=== PATIENT | female | born 1960 | race African-American/Black ===

== ENCOUNTER 2024-08-21 11:28 | Emergency (ER) | payer SELFPAY ==
[~2024-08-21] VITALS: Ht 167.6 cm; Wt 86.0 kg
[2024-08-21 11:35] VITALS: BP 170/74; RESP 18; TEMP 98.1; O2SAT 100
[2024-08-21 11:36] VITALS: PULSE 101; O2SAT 98
[2024-08-21] MEDS ORDERED: MUPI15CR11 TP (15:06)
[2024-08-21] MEDS ORDERED: DOXY100T28 MT (15:06)
== END 2024-08-21 15:14 | disposition home or self-care (01) ==
LOC: ER 11:28
DX: I87.2 Venous insufficiency (chronic) (peripheral) (principal); I83.018 Varicose veins of right lower extremity with ulcer other part of lower leg; I10 Essential (primary) hypertension
CPT/HCPCS: 99283